=== PATIENT | male | born 1990 | race Caucasian/White ===

== ENCOUNTER 2021-06-05 15:05 | Emergency (ER) | payer MEDICAID, OTHER, SELFPAY ==
[~2021-06-05] VITALS: Ht 177.8 cm; Wt 93.0 kg
[2021-06-05 15:08] VITALS: BP 155/92
--- NOTE | 2021-06-05 15:29 | NUR ---
Pt presents with mulitple R arm wounds with yellow pussy discharge. Pt states 3 weeks ago he was licked by a dog and the infection started. 2 weeks ago he got a new tattoo and the infection spread. Pt reports subjective fevers and chills, and a general feeling of unwell.
[2021-06-05] MEDS ORDERED: NEOSPORIN OINT. PKT 1 PACKET ONE (16:01)
== END 2021-06-05 16:22 | disposition home or self-care (01) ==
LOC: ED 16:18
DX: L03.113 Cellulitis of right upper limb (principal)
CPT/HCPCS: 99282